=== PATIENT | female | born 1965 | race Caucasian/White ===

== ENCOUNTER → 2019-12-21 | Outpatient (CLI) | payer OTHER | END | disposition home or self-care (01) | LOC: STAR 14:03 | PROVIDERS: ATTEND Anesthesiology | DX: Z01.818 Encounter for other preprocedural examination (principal); Z11.59 Encounter for screening for other viral diseases; C10.2 Malignant neoplasm of lateral wall of oropharynx | CPT/HCPCS: 36415; 87635 ==